=== PATIENT | female | born 1985 | race Caucasian/White ===

== ENCOUNTER 2020-12-16 14:23 | Outpatient (REF) | payer OTHER, MEDICAID, SELFPAY ==
[2020-12-16 16:50] LABS: MANUAL DIFF FLAG NO
[2020-12-16 16:53] LABS: Basophils Percent Auto 0.5 % (0-2); Eosinophils Absolute Auto 0.1 X10*3/uL (0.0-0.4); Eosinophils Percent Auto 1.5 % (0-4); Hematocrit 36.6 % (37-47); Hemoglobin 11.6 g/dl (12.0-16.0); Imm Gran Abs Auto 0.01 X10*3/uL (0.00-0.03); Imm Gran Pct Auto 0.2 % (0.0-0.4); Lymphocytes Absolute Auto 2.6 X10*3/uL (1.2-4.9); Lymphocytes Percent Auto 44.2 % (20-40); Mean Corpuscular HGB Conc 31.7 g/dl (31.0-35.0); Mean Corpuscular Hemoglobin 26.5 pg (27.0-33.0); Mean Corpuscular Volume 83.8 fL (80-98); Mean Platelet Volume 10.3 fL (9.4-12.3); Monocytes Absolute Auto 0.5 X10*3/uL (0.1-1.2); Monocytes Percent Auto 9.3 % (2-11); Neutrophils Absolute Auto 2.6 X10*3/uL (2.0-8.3); Neutrophils Percent Auto 44.3 % (45-73); Platelet Count 232 X10*3/uL (160-400); Red Blood Count 4.37 X10*6/uL (4.20-5.50); Red Cell Distribution Width 14.6 % (11.0-16.0); White Blood Count 5.8 X10*3/uL (4.8-10.8)
[2020-12-16 17:26] LABS: Alanine Aminotransferase 10 U/L (0-31); Albumin Level 4.5 g/dL (3.5-5.0); Alkaline Phosphatase 57 U/L (39-117); Anion Gap 12 (12-20); Aspartate Amino Transferase 14 U/L (5-31); Bilirubin Total 0.4 mg/dL (0.0-1.0); Blood Urea Nitrogen 9 mg/dL (9-16); Calcium 9.1 mg/dL (8.4-10.2); Carbon Dioxide 28 mmol/L (22-29); Chloride 107 mmol/L (96-108); Estimated Glomerular Filt Rate > 60; Glucose Random 86 mg/dL (60-115); Potassium 4.3 mmol/L (3.3-5.1); Sodium 143 mmol/L (135-145); Total Protein 6.9 g/dL (6.5-8.0)
[2020-12-16 17:48] LABS: Thyroid Stimulating Hormone 1.27 uIU/mL (0.32-4.0)
[2020-12-18 16:12] LABS: Transglutaminase IgA 1 U/mL
[2020-12-20 11:27] LABS: Endomysial IgA Antibody Negative (Negative)
== END 2020-12-16 14:24 | disposition home or self-care (01) ==
LOC: HO.LAB 14:23
PROVIDERS: PCP Nurse Practitioner Family; Referring Provider Nurse Practitioner Family; Visit Provider Physician Assistant
DX: K62.5 Hemorrhage of anus and rectum (principal); R10.11 Right upper quadrant pain; K21.9 Gastro-esophageal reflux disease without esophagitis; K58.1 Irritable bowel syndrome with constipation; K58.0 Irritable bowel syndrome with diarrhea; Z79.899 Other long term (current) drug therapy
CPT/HCPCS: 36415; 80053; 83516; 84443; 85025; 86255; 86256

== ENCOUNTER 2021-01-24 08:24 | Outpatient (REF) | payer OTHER, MEDICAID, SELFPAY ==
[2021-01-25 15:18] LABS: H Pylori Breath Test Negative (Negative)
== END 2021-01-24 08:25 | disposition home or self-care (01) ==
LOC: HO.LNP 08:24
PROVIDERS: PCP Nurse Practitioner Family; Visit Provider Internal Medicine Gastroenterology
DX: K21.9 Gastro-esophageal reflux disease without esophagitis (principal)
CPT/HCPCS: 83013

== ENCOUNTER 2023-05-28 16:03 | Outpatient (REF) | payer MEDICAID, SELFPAY ==
[2023-05-28 18:42] LABS: Influenza A PCR NEGATIVE (Negative); Influenza B PCR NEGATIVE (Negative); Resp Syncy Virus RNA Qual PCR NEGATIVE (Negative); SARS COV2 PCR INHOUSE NEGATIVE (Negative)
== END 2023-05-28 16:04 | disposition home or self-care (01) ==
LOC: HO.CHCLNP 16:03
PROVIDERS: Visit Provider Registered Nurse
DX: Z11.52 Encounter for screening for COVID-19 (principal); Z20.822 Contact with and (suspected) exposure to COVID-19; R07.0 Pain in throat
CPT/HCPCS: 0241U

== ENCOUNTER 2023-07-08 14:51 | Outpatient (REF) | payer MEDICAID, SELFPAY ==
[2023-07-08 17:26] LABS: MANUAL DIFF FLAG NO
[2023-07-08 17:38] LABS: Basophils Percent Auto 0.6 % (0-2); Eosinophils Absolute Auto 0.1 X10*3/uL (0.0-0.4); Eosinophils Percent Auto 1.4 % (0-4); Hematocrit 35.5 % (37.0-47.0); Hemoglobin 11.6 g/dl (12.0-16.0); Imm Gran Abs Auto 0.01 X10*3/uL (0.00-0.03); Imm Gran Pct Auto 0.3 % (0.0-0.4); Lymphocytes Absolute Auto 1.7 X10*3/uL (1.2-4.9); Lymphocytes Percent Auto 48.9 % (20-40); Mean Corpuscular HGB Conc 32.7 g/dl (31.0-35.0); Mean Corpuscular Hemoglobin 26.4 pg (27.0-33.0); Mean Corpuscular Volume 80.9 fL (80.0-98.0); Mean Platelet Volume 9.8 fL (9.4-12.3); Monocytes Absolute Auto 0.3 X10*3/uL (0.1-1.2); Monocytes Percent Auto 8.7 % (2-11); Neutrophils Absolute Auto 1.4 x10*3/uL (2.0-8.3); Neutrophils Percent Auto 40.1 % (45-73); Platelet Count 237 X10*3/uL (160-400); Red Blood Count 4.39 X10*6/uL (4.20-5.50); Red Cell Distribution Width 14.5 % (11.0-16.0); White Blood Count 3.6 X10*3/uL (4.8-10.8)
[2023-07-08 18:15] LABS: Iron 88 mcg/dL (30-160); Percent Iron Saturation 31 % (15-50); Total Iron Binding Capacity 282 mcg/dL (228-428); Unsaturated Iron Binding 194 ug/dL
[2023-07-08 18:23] LABS: TSH reflex Free T4 0.61 uIU/mL (0.32-4.0); Vitamin D 25-OH Total 20.4 ng/mL (>30)
[2023-07-08 18:35] LABS: Folate 7.9 ng/mL (> or = 4.0); Vitamin B12 369 pg/mL (200-900)
== END 2023-07-08 14:52 | disposition home or self-care (01) ==
LOC: CF 14:51
PROVIDERS: Visit Provider Pediatrics
DX: R53.82 Chronic fatigue, unspecified (principal)
CPT/HCPCS: 36415; 82306; 82607; 82746; 83540; 84443; 85025

== ENCOUNTER 2023-12-02 09:42 | Outpatient (REF) | payer MEDICAID, SELFPAY ==
[2023-12-02 14:47] LABS: MANUAL DIFF FLAG NO
[2023-12-02 15:09] LABS: Basophils Percent Auto 0.5 % (0-2); Eosinophils Absolute Auto 0.1 X10*3/uL (0.0-0.4); Eosinophils Percent Auto 1.5 % (0-4); Hematocrit 36.8 % (37.0-47.0); Imm Gran Abs Auto 0.02 X10*3/uL (0.00-0.03); Imm Gran Pct Auto 0.2 % (0.0-0.4); Lymphocytes Percent Auto 24.6 % (20-40); Mean Corpuscular HGB Conc 32.6 g/dl (31.0-35.0); Mean Corpuscular Hemoglobin 26.7 pg (27.0-33.0); Mean Corpuscular Volume 81.8 fL (80.0-98.0); Mean Platelet Volume 11.1 fL (9.4-12.3); Monocytes Absolute Auto 0.6 X10*3/uL (0.1-1.2); Monocytes Percent Auto 6.9 % (2-11); Neutrophils Absolute Auto 5.4 x10*3/uL (2.0-8.3); Neutrophils Percent Auto 66.3 % (45-73); Platelet Count 223 X10*3/uL (160-400); Red Cell Distribution Width 14.7 % (11.0-16.0); White Blood Count 8.1 X10*3/uL (4.8-10.8)
[2023-12-02 15:46] LABS: Iron 52 mcg/dL (30-160); Percent Iron Saturation 16 % (15-50); Total Iron Binding Capacity 319 mcg/dL (228-428); Unsaturated Iron Binding 267 ug/dL
[2023-12-02 16:04] LABS: Vitamin D 25-OH Total 29.2 ng/mL (>30)
[2023-12-07 22:38] LABS: HPV 16 RNA NOT DETECTED (NOT DETECTED); HPV mRNA E6/E7 Detected (Not Detected)
[2023-12-10 02:38] LABS: Estradiol Ultra Sensitive 148 pg/mL
== END 2023-12-02 09:43 | disposition home or self-care (01) ==
LOC: HO.CHCLDS 09:42
PROVIDERS: Visit Provider Pediatrics
DX: E55.9 Vitamin D deficiency, unspecified (principal); Z12.4 Encounter for screening for malignant neoplasm of cervix
CPT/HCPCS: 36415; 82306; 82670; 83001; 83540; 85025; 87624; 87625; 88175